=== PATIENT | female | born 1960 | race African-American/Black ===

== ENCOUNTER 2020-10-24 08:38 | Emergency (ER) | payer OTHER ==
[~2020-10-24] VITALS: Ht 167.6 cm; Wt 68.0 kg
[~2020-10-24 08:38] MED LIST: ALEVE220 M1; AMOXICILLIN/CL875 MG OR; AMOXICILLIN500 MG PO; CELEBREX200 MG; CLARITIN10 M1 PO; FLEXERIL OR; FLONASE NASAL50 MCG; IBUPROFEN800 MG PO; LEVAQUIN750 MG OR; LORTAB 5 OR; NO CURRENT MEDS; NO HOME MEDS; NO MEDS; PROAIR HFA IN; ROBITUSSIN AC10 ML PO; TORADOL OR
[2020-10-24] MEDS ORDERED: HYDROXYCHLOR200 M1 PO (09:08)
[2020-10-24] MEDS ORDERED: NEURONTIN100 MG PO (09:08)
[2020-10-24 09:28] LABS: HEMATOCRIT 44.9 % (37.0-47.0); HEMOGLOBIN 14.5 g/dl (12.0-16.0); IMMATURE GRANULOCYTES 0.2 % (0.0-5.0); MEAN CELL VOLUME 80.8 fL CALC (80.0-100.0); MEAN CORPUSCULAR HGB 26.1 pG CALC (26.0-32.0); MEAN CORPUSCULAR HGB CONC 32.3 g/dL CAL (32.0-36.0); NEUT# 2.61 thou/uL (2.00-7.15); RED BLOOD COUNT 5.56 mill/uL (4.20-5.60); RED CELL DISTRI WIDTH 13.4 % (11.5-15.5)
[2020-10-24 09:57] LABS: ANION GAP 12 (6-22 (CALC)); BUN 12 mg/dL (7-17); BUN/CREATININE RATIO 22 (12-20 (CALC)); CARBON DIOXIDE 28 mmol/l (22-30); CHLORIDE 104 mmol/l (95-108); CREATININE 0.5 mg/dL (0.5-1.0); GFR > 60 ML/MIN (>=60 (CALC)); GFR FOR AFR.AMER. > 60 ML/MIN (>=60 (CALC)); POTASSIUM 4.1 mmol/l (3.5-5.1); SODIUM 140 mmol/l (137-146)
[2020-10-24] MEDS ORDERED: PREDNISONE50 MG PO (10:26)
[2020-10-24] MEDS ORDERED: ALLERGY RELF10 M3 PO (10:26)
[2020-10-24] MEDS ORDERED: EPIPEN 2-P0.3 MG/0.3 IM (10:26)
[2020-10-24 13:41] VITALS: BP 109/62
== END 2020-10-24 13:41 | disposition left against medical advice (07) | DRG 916 ==
LOC: ED 08:38
PROVIDERS: Family Medicine
DX: T78.3XXA Angioneurotic edema, initial encounter (principal); Z91.19 Patient's noncompliance with other medical treatment and regimen

== ENCOUNTER 2022-03-12 11:37 | Emergency (ER) | payer OTHER ==
[~2022-03-12] VITALS: Ht 167.6 cm; Wt 70.0 kg
[~2022-03-12 11:37] MED LIST changes: +ALLERGY RELF10 M3 PO; +EPIPEN 2-P0.3 MG/0.3 IM; +HYDROXYCHLOR200 M1 PO; +NEURONTIN100 MG PO; +PREDNISONE50 MG PO
[2022-03-12 11:56] VITALS: BP 123/87
[2022-03-12] MEDS ORDERED: HYDROXYCHLOR200 M1 PO (11:59)
[2022-03-12 12:00] VITALS: BP 130/80
[2022-03-12 13:03] VITALS: BP 131/76
[2022-03-12 13:30] VITALS: BP 126/63
[2022-03-12] MEDS ORDERED: NAPROXEN500 MG PO (14:30)
[2022-03-12 14:37] VITALS: BP 126/63
== END 2022-03-12 14:38 | disposition home or self-care (01) | DRG 556 ==
LOC: ED 11:37
DX: M79.662 Pain in left lower leg (principal); M79.89 Other specified soft tissue disorders